=== PATIENT | male | born 2005 | race Caucasian/White ===

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

== ENCOUNTER 2023-08-23 01:14 | Emergency (ER) | payer MEDICAID ==
[~2023-08-23] VITALS: Ht 177.8 cm; Wt 56.0 kg
[~2023-08-23 01:14] MED LIST: IBUP-860 PO
[2023-08-23 01:19] VITALS: TEMP 98
[2023-08-23] MEDS: ketorolac tromethamine 15mg/ml inj. IM ONE (01:55)
[2023-08-23] MEDS ORDERED: OXYC-145 PO (02:30)
[2023-08-23] MEDS: HYDROcodone/acetaminophen 5mg/325mg tablet PO ONE (02:44)
[2023-08-23 02:46] VITALS: BP 128/74; PULSE 88; O2SAT 99
[2023-08-23 02:48] VITALS: RESP 18
== END 2023-08-23 02:51 | disposition home or self-care (01) ==
LOC: ER 01:14
DX: S42.401A Unspecified fracture of lower end of right humerus, initial encounter for closed fracture (principal); Z79.1 Long term (current) use of non-steroidal anti-inflammatories (NSAID); Z79.899 Other long term (current) drug therapy; X58.XXXA Exposure to other specified factors, initial encounter; Y93.72 Activity, wrestling; Y92.89 Other specified places as the place of occurrence of the external cause; Y99.8 Other external cause status
CPT/HCPCS: 73060; 73070; 96372; 99284; J1885

== ENCOUNTER 2023-09-01 12:41 | Day surgery (SDC) | payer BC, MEDICAID ==
[2023-09-01] VITALS (11 sets, daily range): BP systolic 114–128; BP diastolic 69–81; PULSE 79–131; RESP 10–18; TEMP 97.6; O2SAT 96–100
[~2023-09-01] VITALS: Ht 177.8 cm; Wt 61.0 kg
[~2023-09-01 12:41] MED LIST changes: +HYDR-3968 PO; -IBUP-860 PO
[2023-09-01] MEDS: famotidine 20mg tablet PO ONE (13:22)
[2023-09-01] MEDS: ringers solution, lacted 1,000 ML IV SCH (13:23)
[2023-09-01 13:24] LABS: BASOPHILS % (AUTO) 0.4 % (0-1); EOSINOPHILS # (AUTO) 0.1 X10'3 (0-0.9); EOSINOPHILS % (AUTO) 0.8 % (0-6); LYMPHOCYTES # (AUTO) 1.6 X10'3 (1.1-4.8); LYMPHOCYTES % (AUTO) 16.1 % (21-51); MEAN CORPUSCULAR HEMOGLOBIN 30.7 PG (27.0-31.0); MEAN CORPUSCULAR HGB CONC 33.7 g/dL (33.0-36.5); MEAN CORPUSCULAR VOLUME 91.3 FL (78-98); MEAN PLATELET VOLUME 7.5 FL (7.4-10.4); MONOCYTES # (AUTO) 0.9 X10'3 (0-0.9); NEUTROPHILS # (AUTO) 7.2 X10'3 (1.8-7.7); NEUTROPHILS % (AUTO) 73.7 % (42-75); PRE OP HEMATOCRIT 35.4 % (42.0-52.0); PRE OP HEMOGLOBIN 11.9 g/dL (14.0-17.9); PRE OP PLATELET COUNT 412 X10'3 (140-440); PRE OP WHITE BLOOD COUNT 9.8 10'3 (4.8-10.8); RED BLOOD COUNT 3.88 X10'6 (4.70-6.10); RED CELL DISTRIBUTION WIDTH 13.2 % (11.5-14.5)
[2023-09-01] MEDS: cefazolin 2gm/D5W 100mL 100 ML IV ONE (13:27)
[2023-09-01] MEDS ORDERED: BUPIVAcaine/PF 2.5mg/ml (0.25%) 10ml vial ONE (13:33)
[2023-09-01] MEDS ORDERED: vancomycin 1,000mg inj ONE (13:33)
[2023-09-01 13:38] LABS: ALBUMIN 3.7 G/DL (3.4-5.0); ALBUMIN/GLOBULIN RATIO 0.9 (1.1-1.5); ALKALINE PHOSPHATASE 50 IU/L (20-180); BLOOD UREA NITROGEN 10 MG/DL (7-18); BUN/CREATININE RATIO 14.5 (10.0-20.0); CALCIUM 9.3 MG/DL (8.5-10.1); CHLORIDE 97 MMOL/L (99-107); CREATININE 0.69 MG/DL (0.60-1.10); PRE OP ALT 17 U/L (30-65); PRE OP ANION GAP 11 (8-16); PRE OP AST 15 U/L (10-37); PRE OP BILIRUB, TOTAL 0.6 MG/DL (0.0-1.0); PRE OP GLUCOSE 89 MG/DL (70-104); PRE OP POTASSIUM 3.6 MMOL/L (3.4-5.1); PRE OP SODIUM 135 MMOL/L (135-145); TOTAL CARBON DIOXIDE 26.7 MMOL/L (24-32); eCRCL 127 ML/MIN; eGFR > 90 ML/MIN
[2023-09-01] MEDS ORDERED: ROPIVAcaine 0.5% (5mg/ml) 30ml vial ONE (14:25)
[2023-09-01] MEDS ORDERED: cloNIDine hcl/PF 100mcg/ml inj ONE (14:26)
[2023-09-01] MEDS ORDERED: propofol inj 20 ML IV ONE (15:05)
[2023-09-01] MEDS ORDERED: fentaNYL/PF 50MCG/1 ML 2ML syringe ONE (15:06)
[2023-09-01] MEDS ORDERED: midazolam 1 mg/ML 2ml injection ONE (15:07)
[2023-09-01] MEDS ORDERED: sevoflurane 250ml liquid IH ONE (15:11)
[2023-09-01] MEDS ORDERED: rocuronium 10mg/ml inj IV ONE (16:44)
[2023-09-01] MEDS ORDERED: dexamethasone sod phosphate 4mg/ml inj. ONE (16:44)
[2023-09-01] MEDS ORDERED: ringers solution, lacted 1,000 ML IV SCH (16:45)
[2023-09-01] MEDS ORDERED: morphine 4 MG/ML inj SYRINge IV PRN (16:45)
[2023-09-01] MEDS ORDERED: proCHLORperazine 10 MG/2 ml inj IV PRN (16:45)
[2023-09-01] MEDS ORDERED: morphine 2 MG/ML inj. syringe IV PRN (16:45)
[2023-09-01] MEDS ORDERED: meperidine/PF 25mg/ml syringe IV PRN ×3 (16:45)
[2023-09-01] MEDS: vancomycin 1,000mg inj IVT ONE (16:47)
[2023-09-01] MEDS ORDERED: sugammadex 200mg/2ml injection IV ONE (17:06)
[2023-09-01] MEDS ORDERED: meperidine/PF 25mg/ml syringe ONE (17:14)
[2023-09-01] MEDS: ondansetron/PF 4mg/2ml inj IV PRN (17:49)
== END 2023-09-01 18:48 | disposition home or self-care (01) ==
LOC: PAS 12:41
PROVIDERS: ATTEND Orthopaedic Surgery Orthopaedic Trauma
DX: S42.391A Other fracture of shaft of right humerus, initial encounter for closed fracture (principal); G89.18 Other acute postprocedural pain; I20.9 Angina pectoris, unspecified; Z79.891 Long term (current) use of opiate analgesic; X58.XXXA Exposure to other specified factors, initial encounter; Y93.89 Activity, other specified; Y92.89 Other specified places as the place of occurrence of the external cause; Y99.8 Other external cause status
CPT/HCPCS: 24515; 36415; 64450; 73060; 80053; 85025; A6222; C1713; J0690; J0735; J1100; J2175; J2250; J2405; J2704; J2795; J3010; J3370; J3490; J7030; J7120; Z7506; Z7508; Z7512; 76000; A4618; A6449; A7000